=== PATIENT | female | born 1965 | race Caucasian/White ===

== ENCOUNTER → 2016-11-23 | Day surgery (SDC) | payer OTHER ==
[~2016-11-23] MED LIST: ACETAMINOPHEN/HYDROcodone 325 MG/7.5 MG TAB ONE; APREPITANT 40 MG CAP ONE; HYDR-3533 PO; HYDR-3580 PO; HYDR10TA65 PO; HYDR5TAB64 PO; KETOROLAC TROMETHAMINE 30 MG/ML (IVP) VIAL IV PUSH ONE; LACTATED RINGER'S 1000 ML INJ 1,000 ML ONE; MIDAZOLAM HCL 2 MG/2 ML VIAL ONE; ONDANSETRON HCL 4 MG/2 ML VIAL IV PUSH ONE; PROPOFOL 200 MG/20 ML AMP IV ONE; THYR1TAB21 PO; ZOFR4TAB PO; ZOFR4TAB3 SL; ceFAZolin INJ 1,000 MG VIAL ONE
--- NOTE | 2016-11-24 10:13 | MP ---
cc: GISELLE ARREDONDO M.D. DATE OF SURGERY: 11/23/2016 DATE OF : 1965 PREOPERATIVE DIAGNOSIS Patient with recurrent hematometra status post ablation more than 10 years ago. PROCEDURE Exam under anesthesia, diagnostic hysteroscopy with dilatation and curettage, evacuation of endometrial cavity and hematometra. POSTOPERATIVE DIAGNOSIS Patient with recurrent hematometra status post ablation more than [address] Arredondo. ANESTHESIA General with LMA. ESTIMATED BLOOD LOSS None. DRAINS None. OPERATIVE FINDINGS The patient had midline uterus, uterine cavity appeared symmetrical, easily opened with a simple dilator with a copious amount of dark maroon colored blood, no focal lesion, no mass, no abnormal area within the uterine cavity, there is no perforation. INDICATION FOR PROCEDURE Patient with a previous history of hematometra with recurrent hematometra and significant pelvic pain, consented for hysteroscopy, evacuation of hematometra, dilatation and curettage. DESCRIPTION OF PROCEDURE The patient was taken to the operating room, under general anesthesia, had an LMA placed. She was carefully positioned in dorsolithotomy position with candy-cane stirrups. She had sequentials placed on the lower extremities for VTE prophylaxis. She was prepped and draped. A time-out was conducted and agreed by all present in the room. The patient received prophylactic antibiotics appropriately documented. Cervix was easily identified with a bivalve retractor and single-tooth tenaculum was attached anteriorly. A uterine sound was placed gently to about 4 cm. This was followed by the use of a small dilator which allowed entry into the uterine cavity. A copious amount of dark maroon colored drainage was accompanied with mucousy drainage consistent with hematometra. The cervix was then dilated to complete the use of a 5 mm hysteroscope which allowed entry into the cavity. The cavity again was described above, symmetrical and without any focal abnormality. Lavage of the endometrial cavity was performed with the aid of the hysteroscope and then continued dilatation of the cervix to use Hegar dilators up to a #14. No perforation was incurred. The patient was stable. The tenaculum site was dry. At the end of the case final count was correct. The patient was stable. She was taken to the recovery room on room air. MD EVELYN William/TLL /8:50 AM /9:49 AM
== END | disposition home or self-care (01) ==
LOC: ESDC 07:06
PROVIDERS: ATTEND Obstetrics & Gynecology
DX: N85.7 Hematometra (principal); R10.2 Pelvic and perineal pain
CPT/HCPCS: 00952; 58558; J0690; J1885; J2250; J2405; J3010; J7120; J8501

== ENCOUNTER → 2017-01-11 | Outpatient (CLI) | payer OTHER ==
[~2017-01-11] MED LIST changes: -ACETAMINOPHEN/HYDROcodone 325 MG/7.5 MG TAB ONE; -APREPITANT 40 MG CAP ONE; -KETOROLAC TROMETHAMINE 30 MG/ML (IVP) VIAL IV PUSH ONE; -LACTATED RINGER'S 1000 ML INJ 1,000 ML ONE; -MIDAZOLAM HCL 2 MG/2 ML VIAL ONE; -ONDANSETRON HCL 4 MG/2 ML VIAL IV PUSH ONE; -PROPOFOL 200 MG/20 ML AMP IV ONE; -ceFAZolin INJ 1,000 MG VIAL ONE
[2017-01-11 11:52] LABS: AUTOMATED NEUTROPHIL # 2.3 TH/MM3 (1.8-7.7); BASOPHIL % 0.3 % (0.0-2.0); EOSINOPHIL # 0.1 TH/MM3 (0-0.4); EOSINOPHIL % 1.9 % (0.0-4.0); HEMATOCRIT 40.5 % (35.0-46.0); HEMO FLAGS DIFF FINAL; LYMPH % 26.6 % (9.0-44.0); MEAN CELL VOLUME 88.6 FL (80.0-100.0); MEAN CORPUSCULAR HEMOGLOBIN 30.7 PG (27.0-34.0); MEAN CORPUSCULAR HGB CONC 34.6 % (32.0-36.0); NEUT % 63.2 % (16.0-70.0); PLATELET COUNT 190 TH/MM3 (150-450); RED BLOOD COUNT 4.57 MIL/MM3 (4.00-5.30); RED CELL DISTRIBUTION WIDTH 12.4 % (11.6-17.2); WHITE BLOOD COUNT 3.6 TH/MM3 (4.0-11.0)
[2017-01-11 12:04] LABS: BLOOD, URINE MOD (NEG); GLUCOSE,URINE NEG (NEG); KETONE, URINE NEG (NEG); NITRITE,URINE NEG (NEG); SQUAMOUS EPITHELIAL CELL URINE <1 /hpf (0-5); URINE COLOR LIGHT-YELLOW (YELLW/STRAW)
[2017-01-11 12:21] LABS: BICARBONATE 31.2 MEQ/L (21.0-32.0); POTASSIUM 3.7 MEQ/L (3.5-5.1)
--- NOTE | 2017-01-11 18:16 | EKG ---
Date Performed: 01/11/2017 Time Performed: 11:45:22 PTAGE: 51 years EKG: BASELINE ARTIFACT PRESENT. Sinus rhythm POSSIBLE RIGHT VENTRICULAR CONDUCTION DELAY BORDERLINE ECG NO PREVIOUS TRACING DOCTOR: Dima Pimentel Interpretating Date/Time 01/11/2017 18:16:09
== END ==
LOC: CPRE 10:50
PROVIDERS: ATTEND Obstetrics & Gynecology
DX: Z01.810 Encounter for preprocedural cardiovascular examination (principal); Z01.812 Encounter for preprocedural laboratory examination; N92.0 Excessive and frequent menstruation with regular cycle; R94.31 Abnormal electrocardiogram [ECG] [EKG]
CPT/HCPCS: 36415; 80048; 81001; 84703; 85025; 93005

== ENCOUNTER → 2017-01-19 | Day surgery (SDC) | payer OTHER ==
[~2017-01-19] VITALS: Ht 160 cm; Wt 56.1 kg
[~2017-01-19] MED LIST changes: +*morphine SULFATE 8 MG/ML PERIprocedure ONLY ONE; +ACETAMINOPHEN 1000 MG/100 ML VIAL IV ONE; +ACETAMINOPHEN/HYDROcodone 325 MG/5 MG TAB PO PRN; +APREPITANT 40 MG CAP PO SCH; +BUPIVACAINE HCL PF 0.25% 30 ML VIAL INFIL ONE; +CHLORHEXIDINE GLUCONATE 2 % 1 PACK (2 CLOTHS) TOPICAL PRN; +DO NOT ADM ANY ANTICOAGULANT DRUGS PRN; +DOCUSATE SODIUM 100 MG CAP PO SCH; -HYDR-3533 PO; +HYDROmorphone HCL PF 1 MG/ML VIAL IVP PRN; +IBUPROFEN 600 MG TAB PO PRN; +INSULIN HUMAN REGULAR 1,000 UNITS/10 ML VIAL SQ PRN; +KETOROLAC TROMETHAMINE 30 MG/ML (IVP) VIAL IVP PRN; +LACTATED RINGER'S 1000 ML INJ 1,000 ML IV ONE; +LACTATED RINGER'S 1000 ML INJ 1,000 ML IV SCH; +LACTATED RINGER'S 1000 ML IV PRN; +LORazepam 0.5 MG TAB PO PRN; +METOPROLOL TARTRATE 25 MG TAB PO PRN; +MIDAZOLAM HCL 2 MG/2 ML VIAL ONE; +NEOSTIGMINE 3 MG/3 ML SYR IV ONE; +ONDANSETRON HCL 4 MG/2 ML VIAL IV PUSH ONE; +ONDANSETRON HCL 4 MG/2 ML VIAL IVP PRN; +PHENYLEPH/NS 1000 MCG/10 ML SYR IV ONE; +POVIDONE IODINE 5% (ANTISEPSIS KIT) 4 APPLICATIONS EACH NARE PRN; +PROPOFOL 200 MG/20 ML AMP IV ONE; +SODIUM CHLORID 0.9% 500 ML IV PRN; +SODIUM CHLORIDE 0.9% FLUSH 10 ML FLUSH IV FLUSH PRN; +SODIUM CHLORIDE 0.9% FLUSH 10 ML FLUSH IV FLUSH SCH; -ZOFR4TAB3 SL; +ceFAZolin 2 GM PREMIX 50 ML IV SCH; +ePHEDrine/NS 25 MG/5 ML SYR IV ONE; +fentaNYL CITRATE 250 MCG/5 ML AMP ONE; +methylPREDNISolone SOD SUCC 125 MG/2 ML VIAL ONE
[2017-01-19 08:45] VITALS: BP 98/57; PULSE 79; RESP 16; TEMP 98; O2SAT 98
[2017-01-19 16:16] VITALS: BP 92/53; PULSE 82; RESP 18; TEMP 98; O2SAT 98
--- NOTE | 2017-01-20 08:54 | MP ---
cc: JOSE ARREDONDO DATE OF SURGERY 01/19/2017 PREOPERATIVE DIAGNOSIS Patient with recurrent hematometra, chronic pelvic pain and menorrhagia. PROCEDURE Total laparoscopic hysterectomy with the da Silvestre robot assist POSTOPERATIVE DIAGNOSIS Patient with recurrent hematometra, chronic pelvic pain and menorrhagia. SURGEON Jose Arredondo MD ANESTHESIA General with endotracheal intubation ESTIMATED BLOOD LOSS 50 cc DRAINS Conroy to gravity OPERATIVE FINDINGS The patient had a slightly irregular lobular appearing uterus about 10 weeks in size. Both ovaries were normal. There is previous evidence of a tubal ligation, otherwise there are no significant pelvic findings. The upper quadrants appeared normal. INDICATIONS FOR PROCEDURE The patient had a previous endometrial ablation and approximately a year later developed significant cyclic pelvic pain. Studies revealed a retained pocket of endometrial tissue otherwise described as a hematometra. Attempts to drain and keep the cervix patent were unsuccessful and the patient elected for hysterectomy. PROCEDURE Preop, the patient received Ancef 2 grams prophylactically. She underwent general anesthesia with endotracheal intubation without difficulty. She was carefully positioned in the dorsolithotomy position using Jignesh stirrups on the lower extremities. She had sequential's placed for VTE prophylaxis. She was prepped and draped and then a time-out was conducted by all present in the room. Simple exam revealed an anteverted uterus about 10 weeks size. The cervix was medium in size. Conroy catheter was inserted by sterile technique and then a medium V-Care was attached placing the device through the cervical os without difficulty. Once this was positioned, the retractors were removed, gloves were changed, and the abdomen was then draped. The umbilical port site was identified, injected with quarter percent plain Marcaine and then using a 5-mm visible port trocar to obtain direct entry in the perineal cavity. Pneumoperitoneum was accomplished with low pressure. Once this was established, the patient was placed in Trendelenburg positioning and examination of the pelvic anatomy was accomplished. Accessory ports were used using 8 mm ports, two on the right and one on the left. The umbilical port was changed to 12 mm camera port. The Zonder patient cart was side docked and a #2 arm was placed on the left side, the #1 and #3 on the right. Monopolar scissors were attached to #2 and a bipolar grasper and a fenestrated grasper were attached to the 1 and 3 respectively. There was no collisions with the arms, good articulation was noted. Attention was then directed to the surgeon cart where good visualization was noted. Manipulation of the pelvis with the physician assistant surgery using the manipulator and identification of all vital structures were made. Both ureters were easily visualized peristalsing through the peritoneal lining. There was no interruption or close proximity during the dissection. The procedure initiated by dividing the round ligaments bilaterally. This allowed separation and dissection of the retroperitoneal space anteriorly taking the broad ligament down away from the lower uterine segment. The patient had previous , but there was no significant scar over the lower uterine segment with the bladder. The bladder remained out of the operative field. The patient elected to have both ovaries to be left intact if they appeared normal. Both ovaries were normal in size and shape. The uterine ovarian pedicles were skeletonized and ligated with good result. The uterine artery and vein were then skeletonized and ligated hemostatically using a bipolar technique. This allowed continuation of the dissection. A colpotomy was made posteriorly and anteriorly and then they were connected allowing removal of the uterus with the cervix. The vaginal cuff was then closed with a simple running suture of #1 Stratafix. This was then reduced vaginally and closure of the cuff was accomplished without difficulty. The integrity of the cuff was tested with a sponge stick placed by the physician assistant surgery and there was no interruption or breakdown of the cuff. Once this was complete, the suture was trimmed flush level with the peritoneum. The suture needle was secured and then the da Silvestre patient cart was undocked. Straight laparoscopy was reintroduced. Examination of the pelvis was dry. There was no hematoma or bleeding. Suture needles were retrieved without difficulty. Irrigation of the pelvis was accomplished and aspiration of all fluid revealed no active bleeding or hematoma. The umbilical port was then closed with a #1 Vicryl suture using a crossbow and then once this was secured, the remaining pneumoperitoneum was decompressed and the trocars were removed intact. A full count was made and correct. The incision sites were closed with a subcuticular suture of 4-0 Monocryl. Steri-Strips and Band-Aids were applied. There was no vaginal bleeding. The cuff was intact. Clear urine was draining through the Conroy throughout the entire case. At the end of the case, final count was correct. The patient was taken to the recovery room extubated on room air. MD EVELYN William/DJSwati /1:15 PM /8:35 AM
== END | disposition home or self-care (01) ==
LOC: HSDC 07:59
PROVIDERS: ATTEND Obstetrics & Gynecology
DX: N92.0 Excessive and frequent menstruation with regular cycle (principal); N72 Inflammatory disease of cervix uteri; N80.0 Endometriosis of uterus; D25.9 Leiomyoma of uterus, unspecified; N73.6 Female pelvic peritoneal adhesions (postinfective)
CPT/HCPCS: 00840; 58570; 86850; 86900; 86901; 88307; J0131; J0690; J2250; J2270; J2370; J2405; J2710; J2930; J3010; J7120; J8501; S2900